=== PATIENT | male | born 1985 | race Hispanic/Latino ===

== ENCOUNTER 2017-10-06 00:27 | Emergency (ER) | payer BC, OTHER ==
[2017-10-06 00:52] VITALS: BMI 30.1
[2017-10-06] MEDS ORDERED: Sodium Chloride 0.9% 1,000 ML IV STA (00:55)
[2017-10-06 00:57] VITALS: RESP 18; TEMP 98; O2SAT 100
--- NOTE | 2017-10-06 00:59 | ED PDOC ---
HPI: Headache Time Seen by Provider: 10/06/17 00:33 Chief Complaint (Nursing): Headache Chief Complaint (Provider): Migraine - Left orbital, behind eye History Per: Patient History/Exam Limitations: no limitations Onset/Duration Of Symptoms: Days Current Symptoms Are (Timing): Still Present Associated Symptoms: Photophobia, Nausea. denies: Blurred Vision Additional Complaint(s): 32 yo male with history of cluster migraines presents with headache, left orbit for 9 days. PT reports the pain intermittent and similar to previous cluster headaches. Pt reports nausea today and vomiting x 1. Pt attempted to take Excedrin which is what made him vomit.Pt states normally they are intermittent over 7 days, not over a week. Pt reports last cluster headache approx 1 year ago. Past Medical History Reviewed: Historical Data, Nursing Documentation, Vital Signs Vital Signs: Last Vital Signs Temp 98.0 F 10/06/17 00:52 Pulse 96 H 10/06/17 00:52 Resp 18 10/06/17 00:52 BP 127/79 10/06/17 00:52 Pulse Ox 100 10/06/17 00:52 - Medical History PMH: Migraine - Surgical History Surgical History: No Surg Hx - Family History Family History: States: No Known Family Hx - Living Arrangements Living Arrangements: With Family - Social History Current smoker - smoking cessation education provided: No - Immunization History Hx Tetanus Toxoid Vaccination: No Hx Influenza Vaccination: No Hx Pneumococcal Vaccination: No - Home Medications Home Medications: Ambulatory Orders Medication Instructions Recorded Ibuprofen 1 tab PO TID PRN #30 tab 07/23/13 - Allergies Allergies/Adverse Reactions: Allergies Allergy/AdvReac Type Severity Reaction Status Date / Time Penicillins Allergy RASH Verified 10/06/17 00:51 Review of Systems ROS Statement: Except As Marked, All Systems Reviewed And Found Negative Constitutional: Negative for: Fever, Chills Gastrointestinal: Positive for: Nausea, Vomiting. Negative for: Abdominal Pain Neurological: Positive for: Headache Physical Exam - Reviewed Nursing Documentation Reviewed: Yes Vital Signs Reviewed: Yes - Physical Exam Appears: Positive for: Well, Non-toxic, No Acute Distress Head Exam: Positive for: ATRAUMATIC, NORMAL INSPECTION, NORMOCEPHALIC Skin: Positive for: Normal Color, Warm, DRY Eye Exam: Positive for: EOMI, Normal appearance, PERRL ENT: Positive for: Normal ENT Inspection Neck: Positive for: Normal, Painless ROM Cardiovascular/Chest: Positive for: Regular Rate, Rhythm Respiratory: Positive for: CNT, Normal Breath Sounds Back: Positive for: Normal Inspection Extremity: Positive for: Normal ROM Neurologic/Psych: Positive for: Alert, Oriented - Laboratory Results Result Diagrams: 10/06/17 01:10 10/06/17 01:10 - ECG O2 Sat by Pulse Oximetry: 100 Disposition - Clinical Impression Clinical Impression: Cluster headache - Disposition Disposition: Routine/Home Disposition Time: 02:47 Condition: STABLE Instructions: Cluster Headache Forms: [facility] (Frisian)
[2017-10-06 01:23] LABS: BASO % 0.5 % (0.0-2.0); EOS # 0.1 K/uL (0.0-0.7); EOS % 1.7 % (0.0-4.0); HEMOGLOBIN 15.4 g/dL (12.0-18.0); LYMPH # 2.5 K/uL (1.0-4.3); LYMPH % 34.4 % (20.0-40.0); MEAN CELL VOLUME 91.5 fl (80.0-94.0); MEAN CORPUSCULAR HEMOGLOBIN 30.5 pg (27.0-31.0); MEAN CORPUSCULAR HGB CONC 33.4 g/dL (33.0-37.0); MEAN PLATELET VOLUME 11.5 fl (7.2-11.7); MONO # 1.1 K/uL (0.0-0.8); MONO % 15.3 % (0.0-10.0); NEUT # 3.5 K/uL (1.8-7.0); NEUT % 48.1 % (50.0-75.0); RBC 5.03 Mil/uL (4.40-5.90); RED CELL DISTRIBUTION WIDTH 12.9 % (11.5-14.5); WHITE BLOOD COUNT 7.2 K/uL (4.8-10.8)
[2017-10-06 01:29] LABS: ALB/GLOB RATIO 1.3 (1.0-2.1); ALBUMIN 4.1 g/dL (3.5-5.0); ALT/SGPT 36 U/L (21-72); AST/SGOT 25 U/L (17-59); BLOOD UREA NITROGEN 15 mg/dl (9-20); CALCIUM 9.1 mg/dL (8.4-10.2); GFR AFRICAN-AMERICAN > 60; GFR NON-AFRICAN AMERICAN > 60
[2017-10-06] MEDS ORDERED: Morphine 4 MG/ML VIAL IVP ONE (03:15)
[2017-10-06 05:41] VITALS: BP 118/71; PULSE 76
--- NOTE | 2017-10-06 10:11 | CT ---
PROCEDURE: CT HEAD WITHOUT CONTRAST. HISTORY: Headache COMPARISON: None available. TECHNIQUE: Axial computed tomography images were obtained through the head/brain without intravenous contrast. Radiation dose: Total exam DLP = 810.03 mGy-cm. This CT exam was performed using one or more of the following dose reduction techniques: Automated exposure control, adjustment of the mA and/or kV according to patient size, and/or use of iterative reconstruction technique. FINDINGS: HEMORRHAGE: No acute parenchymal, subarachnoid nor extra-axial hemorrhage. BRAIN: No mass effect or edema. No atrophy or chronic microvascular ischemic changes. VENTRICLES: Unremarkable. No hydrocephalus. CALVARIUM: Unremarkable. PARANASAL SINUSES: Unremarkable as visualized. No significant inflammatory changes. MASTOID AIR CELLS: Unremarkable as visualized. No inflammatory changes. OTHER FINDINGS: None. IMPRESSION: No acute intracranial hemorrhage. Preliminary report provided by overnight radiology service.
== END 2017-10-06 05:40 | disposition home or self-care (01) ==
LOC: H.ER 00:27
DX: G44.009 Cluster headache syndrome, unspecified, not intractable (principal); Z88.0 Allergy status to penicillin
CPT/HCPCS: 70450; 80053; 85025; 96361; 96365; 96372; 96375; 99284; J1885; J2270; J2765; J3030; J7030